=== PATIENT | male | born 1960 | race American Indian/Alaskan Native ===

== ENCOUNTER 2017-01-17 08:28 | Emergency (ER) | payer SELFPAY ==
[2017-01-17 08:55] VITALS: BP 135/88
--- NOTE | 2017-01-17 11:51 | Emergency Department Report ---
HPI - General Chief Complaint: Urogenital-Male Time Seen by Provider: 01/17/17 11:34 - HPI HPI: Is a 56-year-old male presents to ED complaining of burning with urination and penile discharge 2 days. Patient states yesterday he started experiencing some burning burning pain every time he urinates with pain no discharge. She admits to unprotected intercourse last week. Patient denies any pain or swelling in scrotum swelling or pain, blood in the urine, fever, chills, nausea , vomiting, abdominal pain, chest pain or shortness of breath. ED Past Medical Hx - Past Medical History Previous Medical History?: No - Surgical History Hx Appendectomy: Yes - Social History Smoking Status: Never Smoker Substance Use Type: Alcohol - Medications Home Medications: Home Medications Medication Instructions Recorded Confirmed Last Taken Type Phenazopyridine [Pyridium] 100 mg PO TID #6 tab 01/17/17 Unknown Rx Sulfamethoxazole/Trimethoprim 1 each PO BID #14 tablet 01/17/17 Unknown Rx [Bactrim DS TAB] metroNIDAZOLE [Flagyl] 500 mg PO ONCE #4 tab 01/17/17 Unknown Rx ED Review of Systems ROS: Stated complaint: BURNING IN PENAL AREA Other details as noted in HPI Constitutional: denies: chills, fever Eyes: denies: eye pain, eye discharge, vision change ENT: denies: ear pain, throat pain Respiratory: denies: cough, shortness of breath, wheezing Cardiovascular: denies: chest pain, palpitations Endocrine: no symptoms reported Gastrointestinal: denies: abdominal pain, nausea, diarrhea Genitourinary: dysuria, frequency, discharge. denies: urgency, hematuria, testicular pain, testicular mass Musculoskeletal: denies: back pain, joint swelling, arthralgia, myalgia Skin: denies: rash, lesions Neurological: denies: headache, weakness, paresthesias Psychiatric: denies: anxiety, depression Hematological/Lymphatic: denies: easy bleeding, easy bruising Physical Exam - Physical Exam Vital Signs: Vital Signs 01/17/17 08:53 Temperature 98.6 F Pulse Rate 100 H Respiratory 17 Rate Blood Pressure 135/88 O2 Sat by Pulse 99 Oximetry Physical Exam: GENERAL: Alert and oriented x3, no apparent distress, Normal Gait, atraumatic. HEAD: Head is normocephalic and a-traumatic. EYES: Extra ocular muscles are intact. Pupils are equal, round, and reactive to light and accommodation. NECK: Supple. Non edematous, No carotid bruits. No lymphadenopathy or thyromegaly. No C-spine tenderness LUNGS: Symetrical with respiration, No wheezing, no rales or crackles, CTAB. HEART: S1, S2 present, regular rate and rhythm without murmur, no rubs, no gallops. ABDOMEN: No organomegaly was noted,Positive bowel sounds, soft, and non- distended. . Nontender to palpation on all Quadrants, NO CVA tenderness. UROGENITAL: No scrotal mass, Scrotum non tender to palpation bilaterally, no hernia, no scars or penile discharge. SKIN: Warm and dry, No lesions, No ulceration or induration present. ED Course Vital Signs 01/17/17 08:53 Temperature 98.6 F Pulse Rate 100 H Respiratory 17 Rate Blood Pressure 135/88 O2 Sat by Pulse 99 Oximetry ED Medical Decision Making - Medical Decision Making 56-year-old male presents with urethritis ED course: Urinalysis, urine chlamydia ordered. Urinalysis shows bacteria, elevated WBC, elevated RBC, leukocyte esterase, nitrate. Results suggest urethritis possibly due to see transmitted infection Discussed findings with the patient Constipation that STD screening does not come back for the next 3 days. Discussed patient he can call back to get results. Discussed the patient will be treated empirically ED today. Discussed home medication of antibiotics for urinary tract infection. discussed the patient to follow-up with primary care or health department for further STD testing. Vital signs are normal patient is in no acute distress. Patient understands all that was discussed and will follow-up. Critical care attestation.: If time is entered above; I have spent that time in minutes in the direct care of this critically ill patient, excluding procedure time. ED Disposition Clinical Impression: STD exposure, Urethritis UTI (urinary tract infection) Qualifiers: Urinary tract infection type: acute cystitis Hematuria presence: with hematuria Qualified Code(s): N30.01 - Acute cystitis with hematuria Disposition: DISCHARGED TO HOME OR SELFCARE Is pt being admited?: No Does the pt Need Aspirin: No Condition: Stable Instructions: Sexually Transmitted Diseases (ED), Safe Sex (ED), Nonspecific Urethritis in Men (ED), Urinary Tract Infection in Men (ED) Additional Instructions: Take your medication as prescribed. Pyridium one of her medication your prescribed today may make your bodily fluids orange color Follow-up with primary care physician for further STD testing. If worsening symptoms return to ED Prescriptions: metroNIDAZOLE [Flagyl] 500 mg PO ONCE #4 tab Phenazopyridine [Pyridium] 100 mg PO TID #6 tab Sulfamethoxazole/Trimethoprim [Bactrim DS TAB] 1 each PO BID #14 tablet Referrals: PRIMARY CARE, [Primary Care Provider] - 3-5 Days Forms: STI Treatment and Prevention, Work/School Release Form(ED) Time of Disposition: 12:13
[2017-01-17 11:55] LABS: Bacteria,Urine 3+ /HPF (Negative); Bilirubin,Urine NEG (Negative); Blood,Urine MOD (Negative); Ketones,Urine NEG (Negative); Leukocyte Esterase,Urine LG (Negative); Mucus,Urine 1+ /HPF; Nitrite,Urine NEG (Negative); Urobilinogen,Urine < 2.0 mg/dL (<2.0)
[2017-01-17 11:59] LABS: WBC,Urine > 182.0 /HPF (0.0-6.0)
[2017-01-17] MEDS ORDERED: ZITHROMAX PO ONE (12:11)
[2017-01-17] MEDS ORDERED: ROCEPHIN IM ONE (12:11)
[2017-01-17] MEDS ORDERED: XYLOCAINE 1% MPF 5 mL INFILTRATI ONE (12:11)
== END 2017-01-17 12:38 | disposition home or self-care (01) ==
LOC: ED 08:28
DX: N30.01 Acute cystitis with hematuria (principal); N34.2 Other urethritis; Z20.2 Contact with and (suspected) exposure to infections with a predominantly sexual mode of transmission; Z90.49 Acquired absence of other specified parts of digestive tract
CPT/HCPCS: 81001; 87591; 96372; 99282; J0696

== ENCOUNTER 2018-01-31 14:40 | Emergency (ER) | payer OTHER ==
[2018-01-31] MEDS ORDERED: NACL 0.9% 1000 ML 1,000 ML IV ONE ×3 (15:01→16:48)
[2018-01-31 15:28] LABS: Basophils % (Auto) 0.4 % (0.0-1.8); Eosinophils % (Auto) 0.6 % (0.0-4.3); Hematocrit 44.1 % (35.5-45.6); Lymphocytes # (Auto) 0.9 K/mm3 (1.2-5.4); Lymphocytes % (Auto) 19.4 % (13.4-35.0); Mean Corpuscular HGB Conc 34 % (32-34); Mean Corpuscular Hemoglobin 33 pg (28-32); Mean Corpuscular Volume 96 fl (84-94); Monocytes # (Auto) 0.6 K/mm3 (0.0-0.8); Monocytes % (Auto) 12.7 % (0.0-7.3); Platelet Count 139 K/mm3 (140-440); Red Cell Distribution Width 13.4 % (13.2-15.2)
[2018-01-31 15:38] LABS: INR 0.97 (0.87-1.13)
[2018-01-31 15:39] LABS: Partial Thromboplastin Time 29.6 Sec. (24.2-36.6)
[2018-01-31 15:44] LABS: Alanine Aminotransferase 22 units/L (7-56); Albumin 4.3 g/dL (3.9-5); BUN/Creatinine Ratio 17; Blood Urea Nitrogen 10 mg/dL (9-20); Calcium 9.4 mg/dL (8.4-10.2); Hemolysis Index 7
[2018-01-31 15:53] LABS: Lipase 448 units/L (13-60)
[2018-01-31] MEDS ORDERED: ZOFRAN IV ONE (16:37)
[2018-01-31] MEDS ORDERED: MORPHINE IV ONE (16:37)
--- NOTE | 2018-01-31 16:43 | Emergency Department Report ---
ED Abdominal Pain HPI - General Chief Complaint: GI Bleed Stated Complaint: SEVERE ABD PAIN Time Seen by Provider: 01/31/18 15:59 Source: patient Mode of arrival: Ambulatory Limitations: No Limitations - History of Present Illness Initial Comments: Mr. Bell is a 57-year-old male with hx of daily alcohol use. He has had 2 days of epigastric pain with vomiting. He said the vomit was streaked with blood. Denies any bloody stools. Did have a history of pancreatitis. He drinks 60+ ounces of beer daily. MD Complaint: abdominal pain -: Gradual, days(s) (3) Location: epigastric Radiation: none Severity: severe Severity scale (0 -10): 10 Quality: cramping Consistency: constant Associated Symptoms: hematochezia - Related Data Previous Rx's Medication Instructions Recorded Last Taken Type Phenazopyridine [Pyridium] 100 mg PO TID #6 tab 01/17/17 Unknown Rx Sulfamethoxazole/Trimethoprim 1 each PO BID #14 tablet 01/17/17 Unknown Rx [Bactrim DS TAB] metroNIDAZOLE [Flagyl] 500 mg PO ONCE #4 tab 01/17/17 Unknown Rx Allergies Allergy/AdvReac Type Severity Reaction Status Date / Time No Known Allergies Allergy Verified 01/17/17 08:56 ED Review of Systems ROS: Stated complaint: SEVERE ABD PAIN Other details as noted in HPI Comment: All other systems reviewed and negative Constitutional: malaise. denies: fever Respiratory: denies: cough Cardiovascular: denies: chest pain ED Past Medical Hx - Past Medical History Previous Medical History?: Yes Hx Hypertension: Yes Hx Psychiatric Treatment: Yes (PTSD) Additional medical history: ETOH ABUSE WITH BEER - Surgical History Past Surgical History?: Yes Hx Appendectomy: Yes - Social History Smoking Status: Never Smoker Substance Use Type: Alcohol - Medications Home Medications: Home Medications Medication Instructions Recorded Confirmed Last Taken Type Phenazopyridine [Pyridium] 100 mg PO TID #6 tab 01/17/17 Unknown Rx Sulfamethoxazole/Trimethoprim 1 each PO BID #14 tablet 01/17/17 Unknown Rx [Bactrim DS TAB] metroNIDAZOLE [Flagyl] 500 mg PO ONCE #4 tab 01/17/17 Unknown Rx ED Physical Exam - General Limitations: No Limitations General appearance: alert, in no apparent distress - Head Head exam: Present: atraumatic, normocephalic - Eye Eye exam: Present: normal appearance - ENT ENT exam: Present: mucous membranes moist - Neck Neck exam: Present: normal inspection - Respiratory Respiratory exam: Present: normal lung sounds bilaterally. Absent: respiratory distress, wheezes, rales, rhonchi - Cardiovascular Cardiovascular Exam: Present: regular rate, normal rhythm, normal heart sounds. Absent: systolic murmur, diastolic murmur, rubs, gallop - GI/Abdominal GI/Abdominal exam: Present: soft, distended, normal bowel sounds. Absent: tenderness, guarding, rebound - Rectal Rectal exam: Present: deferred - Extremities Exam Extremities exam: Present: normal inspection - Back Exam Back exam: Present: normal inspection - Neurological Exam Neurological exam: Present: alert, oriented X3 - Psychiatric Psychiatric exam: Present: normal affect, normal mood - Skin Skin exam: Present: warm, dry, intact, normal color. Absent: rash ED Course Vital Signs 01/31/18 01/31/18 14:58 16:22 Temperature 97.8 F 98.5 F Pulse Rate 112 H 87 Respiratory 22 15 Rate Blood Pressure 157/108 Blood Pressure 156/102 [Left] O2 Sat by Pulse 99 100 Oximetry ED Medical Decision Making - Lab Data Result diagrams: 01/31/18 15:08 01/31/18 15:08 Laboratory Results - last 24 hr 01/31/18 01/31/18 01/31/18 15:08 15:08 15:08 WBC 4.7 RBC 4.60 Hgb 15.0 Hct 44.1 MCV 96 H MCH 33 H MCHC 34 RDW 13.4 Plt Count 139 L Lymph % (Auto) 19.4 [place] % (Auto) 12.7 H Eos % (Auto) 0.6 Baso % (Auto) 0.4 Lymph # 0.9 L Moore # 0.6 Eos # 0.0 Baso # 0.0 Seg Neutrophils % 66.9 Seg Neutrophils # 3.2 PT 13.4 INR 0.97 APTT 29.6 Sodium 135 L Potassium 4.5 Chloride 93.4 L Carbon Dioxide 25 Anion Gap 21 BUN 10 Creatinine 0.6 L Estimated GFR > 60 BUN/Creatinine Ratio 17 Glucose 112 H Calcium 9.4 Total Bilirubin 1.10 AST 39 ALT 22 Alkaline Phosphatase 77 Total Protein 8.6 H Albumin 4.3 Albumin/Globulin Ratio 1.0 Lipase 448 H Blood Type 01/31/18 15:08 WBC RBC Hgb Hct MCV MCH MCHC RDW Plt Count Lymph % (Auto) [place] % (Auto) Eos % (Auto) Baso % (Auto) Lymph # Moore # Eos # Baso # Seg Neutrophils % Seg Neutrophils # PT INR APTT Sodium Potassium Chloride Carbon Dioxide Anion Gap BUN Creatinine Estimated GFR BUN/Creatinine Ratio Glucose Calcium Total Bilirubin AST ALT Alkaline Phosphatase Total Protein Albumin Albumin/Globulin Ratio Lipase Blood Type A POSITIVE Vital Signs - 24 hr 01/31/18 01/31/18 14:58 16:22 Temperature 97.8 F 98.5 F Pulse Rate 112 H 87 Respiratory 22 15 Rate Blood Pressure 157/108 Blood Pressure 156/102 [Left] O2 Sat by Pulse 99 100 Oximetry - Medical Decision Making Mr. Bell presents with epigastric pain and hematochezia with elevated lipase to indicate acute pancreatitis. No indication of active GI bleeding with normal H/H and normal vital signs. I have asked our hospitalist Dr. John to evaluate patient for admission. Critical care attestation.: If time is entered above; I have spent that time in minutes in the direct care of this critically ill patient, excluding procedure time. ED Disposition Clinical Impression: Acute alcoholic pancreatitis, Acute abdominal pain Disposition: OP ADMIT IP TO THIS HOSP Is pt being admited?: Yes Does the pt Need Aspirin: No Condition: Stable Time of Disposition: 16:43
--- NOTE | 2018-01-31 17:12 | History and Physical Report ---
History of Present Illness Chief complaint: My stomach has been hurting History of present illness: 57 YO Male with HTN, OA, ETOH Dependence presents to ED for evaluation. Pt states that he has experienced abdominal pain over the past 3 days. Pt states that symptoms began 3 days ago while drinking his daily beer. Pt seen and evaluated in ED and found to have ETOH Pancreatitis. Pt treated with IVF resuscitation, pain control, and anti emetic therapy and supportive care. Pt counseled regarding ETOH cessation. Past History Past Medical History: hypertension Past Surgical History: appendectomy Social history: alcohol abuse Family history: hypertension Medications and Allergies Allergies Allergy/AdvReac Type Severity Reaction Status Date / Time No Known Allergies Allergy Verified 01/17/17 08:56 Home Medications Medication Instructions Recorded Confirmed Last Taken Type Phenazopyridine [Pyridium] 100 mg PO TID #6 tab 01/17/17 Unknown Rx Sulfamethoxazole/Trimethoprim 1 each PO BID #14 tablet 01/17/17 Unknown Rx [Bactrim DS TAB] metroNIDAZOLE [Flagyl] 500 mg PO ONCE #4 tab 01/17/17 Unknown Rx Active Meds: Active Medications Sodium Chloride (Nacl 0.9% 1000 Ml) 1,000 mls @ 250 mls/hr IV ONCE ONE Stop: 01/31/18 19:00 Sodium Chloride (Nacl 0.9% 1000 Ml) 1,000 mls @ 999 mls/hr IV BOLUS ONE Stop: 01/31/18 17:37 Folic Acid 1 mg/ Multivitamins /Minerals 10 ml/ Thiamine HCl 100 mg/ Sodium Chloride 1,000 mls @ 500 mls/hr IV .BY DURATION [facility] Sodium Chloride (Nacl 0.9% 1000 Ml) 1,000 mls @ 125 mls/hr IV .BY DURATION [facility] Review of Systems Constitutional: no weight loss, no weight gain, no fever, no chills Ears, nose, mouth and throat: no ear pain, no ear discharge, no tinnitis, no decreased hearing, no nose pain, no nasal congestion, no nasal discharge Cardiovascular: no chest pain, no orthopnea, no palpitations, no rapid/ irregular heart beat, no edema, no syncope, no lightheadedness Respiratory: no cough with sputum, no excessive sputum, no hemoptysis, no shortness of breath Gastrointestinal: abdominal pain, nausea, no BRBPR, no melena, no hematochezia, no early satiety Genitourinary Male: no hematuria, no flank pain, no urinary frequency, no urinary hesitancy Rectal: no pain, no incontinence, no bleeding Musculoskeletal: no neck stiffness, no neck pain, no shooting arm pain, no arm numbness/tingling, no low back pain, no shooting leg pain Integumentary: no rash, no pruritis, no redness, no sores, no wounds, no jaundice Neurological: no transient paralysis, no paralysis, no weakness, no parathesias , no numbness, no tingling Psychiatric: no memory loss, no change in sleep habits, no sleep disturbances, no insomnia, no hypersomnia, no change in appetite, no change in libido, no suicidal ideation Endocrine: no cold intolerance, no heat intolerance, no polyphagia, no excessive thirst, no polydipsia, no polyuria, no nocturia Hematologic/Lymphatic: no easy bruising, no easy bleeding, no lymphadenopathy, no lymphedema Allergic/Immunologic: no urticaria, no allergic rhinitis, no wheezing, no persistent infections, no anaphylaxis Exam - Constitutional Vitals: Temp Pulse Resp BP Pulse Ox 98.5 F 87 15 156/102 100 01/31/18 16:22 01/31/18 16:22 01/31/18 16:22 01/31/18 16:22 01/31/18 16:22 General appearance: Present: no acute distress, well-nourished - EENT Eyes: Present: PERRL ENT: hearing intact, clear oral mucosa - Neck Neck: Present: supple, normal ROM - Respiratory Respiratory effort: normal Respiratory: bilateral: CTA - Cardiovascular Heart Sounds: Present: S1 & S2. Absent: rub, click - Extremities Extremities: pulses symmetrical, No edema Peripheral Pulses: within normal limits - Abdominal General gastrointestinal: Present: soft, non-tender, non-distended, normal bowel sounds Male genitourinary: Present: normal - Integumentary Integumentary: Present: clear, warm, dry - Musculoskeletal Musculoskeletal: gait normal, strength equal bilaterally - Psychiatric Psychiatric: appropriate mood/affect, intact judgment & insight - Neurologic Neurologic: CNII-XII intact, moves all extremities Results - Labs CBC & Chem 7: 01/31/18 15:08 01/31/18 15:08 Labs: Abnormal lab results 01/31/18 01/31/18 Range/Units 15:08 15:08 MCV 96 H (84-94) fl MCH 33 H (28-32) pg Plt Count 139 L (140-440) K/mm3 [place] % (Auto) 12.7 H (0.0-7.3) % Lymph # 0.9 L (1.2-5.4) K/mm3 Sodium 135 L (137-145) mmol/L Chloride 93.4 L (98-107) mmol/L Creatinine 0.6 L (0.8-1.5) mg/dL Glucose 112 H (75-100) mg/dL Total Protein 8.6 H (6.3-8.2) g/dL Lipase 448 H (13-60) units/L Assessment and Plan - Patient Problems (1) EtOH dependence Current Visit: Yes Status: Acute Qualifiers: Complication of substance-induced condition: uncomplicated Plan to address problem: Thiamine, folic acid, multivitamin, supportive care, ETOH cessation (2) Pancreatitis Current Visit: Yes Status: Acute Qualifiers: Pancreatitis type: alcohol induced Plan to address problem: IVF resuscitation, monitor uop q shift, banana bag, antiemetic therapy
[2018-01-31] MEDS: 1: FOLVITE 1 MG, INFUVITE 10 ML, VITAMIN B-1 100 MG in NACL 0.9% 1000 ML 988.8 ML 2: NA IV SCH ×2 (17:53→21:24)
[2018-01-31 20:07] LABS: Amphetamine Screen,Urine PRESUMPTIVE NEGATIVE; Benzodiazepines Screen,Urine PRESUMPTIVE NEGATIVE; Cannabinoid Screen,Urine PRESUMPTIVE NEGATIVE; Cocaine Screen,Urine PRESUMPTIVE NEGATIVE; Methadone Screen,Urine PRESUMPTIVE NEGATIVE
[2018-01-31 20:20] LABS: Opiate Screen,Urine PRESUMPTIVE POSITIVE
[2018-01-31 23:33] VITALS: BP 157/105
== END 2018-01-31 23:31 | disposition home or self-care (01) ==
LOC: ED 14:40
DX: K85.20 Alcohol induced acute pancreatitis without necrosis or infection (principal); I10 Essential (primary) hypertension
CPT/HCPCS: 36415; 80053; 80307; 83690; 85025; 85610; 85730; 86850; 86900; 86901; 93005; 93010; 96365; 96366; 96375; 99284; G0480; J2270; J2405; J7030; 80320; J3411

== ENCOUNTER 2018-02-22 19:07 | Emergency (ER) | payer SELFPAY ==
[2018-02-22 19:55] LABS: Hematocrit 40.7 % (35.5-45.6); Hemoglobin 13.9 gm/dl (11.8-15.2); Mean Corpuscular HGB Conc 34 % (32-34); Mean Corpuscular Hemoglobin 33 pg (28-32); Mean Corpuscular Volume 97 fl (84-94); Platelet Count 176 K/mm3 (140-440); Red Blood Count 4.21 M/mm3 (3.65-5.03); Red Cell Distribution Width 13.5 % (13.2-15.2)
[2018-02-22 20:09] LABS: Alanine Aminotransferase 12 units/L (7-56); Albumin 4.6 g/dL (3.9-5); BUN/Creatinine Ratio 13; Blood Urea Nitrogen 9 mg/dL (9-20); Calcium 8.8 mg/dL (8.4-10.2); Hemolysis Index 6
[2018-02-22] MEDS ORDERED: VITAMIN B-1 100 MG, FOLVITE 1 MG, INFUVITE 10 ML in NACL 0.9% 1000 ML 1,000 ML IV ONE (20:48)
--- NOTE | 2018-02-22 20:51 | Emergency Department Report ---
HPI - General Chief Complaint: Abdominal Pain Time Seen by Provider: 02/22/18 20:37 - HPI HPI: 57-year-old male presents to the emergency department with a complaint of a 2 day history of generalized abdominal pain that is worse in the upper quadrant of the abdomen. The patient was here on 01/31/18 and diagnosed with alcoholic pancreatitis and records show that he was going to be admitted but ended up either being discharged or leaving AGAINST MEDICAL ADVICE at that time. Patient says that he was offered some detox/rehabilitation but did not want it done at that time but is now asking if he can get set up to go directly to a detox facility. He admits that after his previous visit here he did not stop drinking alcohol and drinks daily beer. He denies any other past medical history. He has not taken anything for his symptoms prior to presentation. He denies any current nausea, vomiting, fever. ED Past Medical Hx - Past Medical History Hx Hypertension: Yes Hx Arthritis: Yes Hx Psychiatric Treatment: Yes (PTSD) Additional medical history: ETOH ABUSE WITH BEER, pancreatitis - Surgical History Past Surgical History?: Yes Hx Appendectomy: Yes - Social History Smoking Status: Never Smoker Substance Use Type: Alcohol - Medications Home Medications: Home Medications Medication Instructions Recorded Confirmed Last Taken Type Phenazopyridine [Pyridium] 100 mg PO TID #6 tab 01/17/17 Unknown Rx Sulfamethoxazole/Trimethoprim 1 each PO BID #14 tablet 01/17/17 Unknown Rx [Bactrim DS TAB] metroNIDAZOLE [Flagyl] 500 mg PO ONCE #4 tab 01/17/17 Unknown Rx Folic Acid [Folvite] 1 mg PO QDAY #30 tablet 01/31/18 Unknown Rx Multivitamin Tab [Multiple Vitamin 1 each PO QDAY #30 tablet 01/31/18 Unknown Rx TAB (Theragran)] Ondansetron [Zofran Odt] 4 mg PO Q8HR #15 tab.rapdis 01/31/18 Unknown Rx Thiamine [Vitamin B-1] 100 mg PO QDAY #30 tablet 01/31/18 Unknown Rx oxyCODONE /ACETAMINOPHEN [Percocet 1 tab PO Q6HR PRN #15 tablet 01/31/18 Unknown Rx 5/325] ED Review of Systems ROS: Stated complaint: ABDOMINAL PAIN/ALCOHOLISM Other details as noted in HPI Comment: All other systems reviewed and negative Constitutional: denies: chills, fever Eyes: denies: eye pain, eye discharge, vision change ENT: denies: ear pain, throat pain Respiratory: denies: cough, shortness of breath, wheezing Cardiovascular: denies: chest pain, palpitations Gastrointestinal: abdominal pain. denies: vomiting Genitourinary: denies: urgency, dysuria Musculoskeletal: denies: back pain, joint swelling, arthralgia Skin: denies: rash, lesions Neurological: denies: headache, weakness, paresthesias Physical Exam - Physical Exam Vital Signs: Vital Signs 02/22/18 19:15 Temperature 97.7 F Pulse Rate 121 H Respiratory 20 Rate Blood Pressure 142/93 O2 Sat by Pulse 95 Oximetry Physical Exam: GENERAL: The patient is well-developed well-nourished. HENT: Normocephalic. Atraumatic. Patient has moist mucous membranes. EYES: Extraocular motions are intact. Pupils equal reactive to light bilaterally. NECK: Supple. Trachea is midline. CHEST/LUNGS: Clear to auscultation. There is no respiratory distress noted. HEART/CARDIOVASCULAR: Regular. There is no tachycardia. There is no murmur. ABDOMEN: Abdomen is soft. Generalized tenderness to palpation of the abdomen. No guarding. Patient has normal bowel sounds. There is no abdominal distention. SKIN: There is no rash. There is no edema. There is no diaphoresis. NEURO: The patient is awake, alert, and oriented. The patient is cooperative. The patient has no focal neurologic deficits. The patient has normal speech. MUSCULOSKELETAL: There is no tenderness or deformity. There is no limitation range of motion. There is no evidence of acute injury. ED Course Vital Signs 02/22/18 19:15 Temperature 97.7 F Pulse Rate 121 H Respiratory 20 Rate Blood Pressure 142/93 O2 Sat by Pulse 95 Oximetry ED Medical Decision Making - Lab Data Result diagrams: 02/22/18 19:32 02/22/18 19:32 - Radiology Data Radiology results: report reviewed EXAM: US ABDOMEN LIMITED HISTORY: upper abd pain TECHNIQUE: Routine imaging was obtained of the right upper outer quadrant. The CT scan of 02/22/2018 was reviewed for correlation. FINDINGS: The liver is normal in size. There are 2 hyperechoic solid lesions in the right lobe 1 posterior and in the midline measuring up to 2.2 cm in diameter 1 more anterior and near the gallbladder measures 1.4 cm in diameter. These are compatible with benign hemangiomas. Adjacent the gallbladder is a benign-appearing 8 mm cyst. The gallbladder is normal in size and wall thickness. Stones are not seen. The common bile duct is normal caliber 3.7 mm. The pancreas is not well seen because of bowel gas. The right kidney is normal size contour and echotexture and shows no evidence of hydronephrosis. The right kidney measures 9.8 cm x 4.7 cm x 5.5 cm. Free fluid is not seen IMPRESSION: Two benign-appearing hemangiomas in the right hepatic lobe. 8 mm benign cyst adjacent to the gallbladder wall. Normal-appearing gallbladder and biliary tree. Transcribed By: RB Dictated By: ZULEMA CASTILLO MD Electronically Authenticated By: ZULEMA CASTILLO MD Signed Date/Time: 02/23/1849 PROCEDURE: CT ABDOMEN PELVIS W CON TECHNIQUE: Computerized axial tomography of the abdomen and pelvis was performed after the IV injection of iodinated nonionic contrast. HISTORY: Abd pain COMPARISON: No prior studies are available for comparison. FINDINGS: Multiple small bullae are noted in the visualized bilateral lung bases. Spleen, pancreas and adrenal glands are within normal limits. 6 millimeter cystic lesion is noted in the midpole left kidney most likely representing a simple cyst.. Bilateral kidneys otherwise demonstrate normal enhancement without hydronephrosis. Urinary bladder is partially filled with normal outlines. Aorta is of normal caliber. There is no free fluid or free air. A 6 millimeter cystic lesion is noted in the right lobe liver adjacent to the gallbladder. An irregular hypodense lesion is noted in the right lobe liver measuring 1.5 x 1.7 centimeters with peripheral pooling of contrast. Small bowel loops are within normal limits. Appendix is not distinctly visualized. There are no inflammatory changes in the right lower quadrant. Moderate prostatomegaly is noted. Moderate degree degenerative changes are noted involving the lower lumbar spine. Vertebral height is normal. IMPRESSION: An irregular hypodense lesion of right lobe liver with centripetal enhancement most likely represents a hemangioma. A dynamic post-contrast CT may be recommended for further evaluation. A small cystic lesion adjacent to the gallbladder may represent a liver cyst. Differential diagnosis includes a small pericholecystic fluid collection. Ultrasound evaluation is recommended. Moderate prostatomegaly No acute intra-abdominal or pelvic pathology. Transcribed By: [facility] [place] Dictated By: DIPTI DE SOUZA Electronically Authenticated By: NOLVIA DIPTI [place] Signed Date/Time: 02/22/18 4210 - Medical Decision Making Patient presents with some abdominal pain with a history of recent alcoholic pancreatitis and the fact that he has not stopped drinking. He is tender to palpation of the generalized abdomen but there is no guarding and the abdomen does not appear rigid or toxic. Labs are mostly unremarkable except for the elevated blood alcohol level of 0.34 from 7 PM this evening. His lipase today is only 40. A CT scan was done of the abdomen and pelvis that did not show any signs of pancreatitis. There are some lesions of the liver appear consistent with hemangiomas and there was something around the gallbladder cyst versus pericholecystic fluid and an ultrasound was recommended. Ultrasound confirms the hemangiomas and a gallbladder cyst but no problems with the biliary tree. The patient is asking for rehabilitation/detox for his alcohol problem. The patient will continue to get IV fluid resuscitation and will remain in the emergency department until 8 AM. Not only will he be around the level where he is legally sober, but this is also the time when he can get a detox referral from [facility]. If he does not meet criteria for this detox, he can be seen by the psych residential installer for some other outpatient referrals. Critical Care Time: No Critical care attestation.: If time is entered above; I have spent that time in minutes in the direct care of this critically ill patient, excluding procedure time. ED Disposition Clinical Impression: Alcohol abuse EtOH dependence Qualifiers: Substance use status: uncomplicated Qualified Code(s): F10.20 - Alcohol dependence, uncomplicated Abdominal pain Qualifiers: Abdominal location: generalized Qualified Code(s): R10.84 - Generalized abdominal pain Disposition: DC-01 TO HOME OR SELFCARE Is pt being admited?: No Condition: Stable Instructions: Abuse of Alcohol (ED), Medical Clearance for Substance Abuse Treatment (ED) Referrals: [facility] [Outside] - 3-5 Days PRIMARY CARE, [Primary Care Provider] - 3-5 Days Time of Disposition: 01:52
[2018-02-22 20:52] LABS: Bilirubin,Urine NEG (Negative); Blood,Urine SM (Negative); Color,Urine Yellow (Yellow); Protein,Urine <15 mg/dL mg/dL (Negative); Urobilinogen,Urine < 2.0 mg/dL (<2.0)
[2018-02-22 21:04] LABS: Amphetamine Screen,Urine PRESUMPTIVE NEGATIVE; Benzodiazepines Screen,Urine PRESUMPTIVE NEGATIVE; Cannabinoid Screen,Urine PRESUMPTIVE NEGATIVE; Cocaine Screen,Urine PRESUMPTIVE NEGATIVE; Methadone Screen,Urine PRESUMPTIVE NEGATIVE; Opiate Screen,Urine PRESUMPTIVE NEGATIVE
[2018-02-22 21:12] LABS: Basophils % (Manual) 0 % (0.0-1.8); Total Cells Counted 100
[2018-02-22 21:13] LABS: RBC Morphology Normal
--- NOTE | 2018-02-22 23:02 | Cat Scan Report ---
FINAL REPORT PROCEDURE: CT ABDOMEN PELVIS W CON TECHNIQUE: Computerized axial tomography of the abdomen and pelvis was performed after the IV injection of iodinated nonionic contrast. HISTORY: Abd pain COMPARISON: No prior studies are available for comparison. FINDINGS: Multiple small bullae are noted in the visualized bilateral lung bases. Spleen, pancreas and adrenal glands are within normal limits. 6 millimeter cystic lesion is noted in the midpole left kidney most likely representing a simple cyst.. Bilateral kidneys otherwise demonstrate normal enhancement without hydronephrosis. Urinary bladder is partially filled with normal outlines. Aorta is of normal caliber. There is no free fluid or free air. A 6 millimeter cystic lesion is noted in the right lobe liver adjacent to the gallbladder. An irregular hypodense lesion is noted in the right lobe liver measuring 1.5 x 1.7 centimeters with peripheral pooling of contrast. Small bowel loops are within normal limits. Appendix is not distinctly visualized. There are no inflammatory changes in the right lower quadrant. Moderate prostatomegaly is noted. Moderate degree degenerative changes are noted involving the lower lumbar spine. Vertebral height is normal. IMPRESSION: An irregular hypodense lesion of right lobe liver with centripetal enhancement most likely represents a hemangioma. A dynamic post-contrast CT may be recommended for further evaluation. A small cystic lesion adjacent to the gallbladder may represent a liver cyst. Differential diagnosis includes a small pericholecystic fluid collection. Ultrasound evaluation is recommended. Moderate prostatomegaly No acute intra-abdominal or pelvic pathology.
[2018-02-23] MEDS ORDERED: NACL 0.9% 1000 ML 1,000 ML IV ONE (00:35)
[2018-02-23] MEDS ORDERED: TORADOL IV ONE (00:56)
--- NOTE | 2018-02-23 01:40 | Ultrasound Report ---
FINAL REPORT EXAM: US ABDOMEN LIMITED HISTORY: upper abd pain TECHNIQUE: Routine imaging was obtained of the right upper outer quadrant. The CT scan of 02/22/2018 was reviewed for correlation. FINDINGS: The liver is normal in size. There are 2 hyperechoic solid lesions in the right lobe 1 posterior and in the midline measuring up to 2.2 cm in diameter 1 more anterior and near the gallbladder measures 1.4 cm in diameter. These are compatible with benign hemangiomas. Adjacent the gallbladder is a benign-appearing 8 mm cyst. The gallbladder is normal in size and wall thickness. Stones are not seen. The common bile duct is normal caliber 3.7 mm. The pancreas is not well seen because of bowel gas. The right kidney is normal size contour and echotexture and shows no evidence of hydronephrosis. The right kidney measures 9.8 cm x 4.7 cm x 5.5 cm. Free fluid is not seen IMPRESSION: Two benign-appearing hemangiomas in the right hepatic lobe. 8 mm benign cyst adjacent to the gallbladder wall. Normal-appearing gallbladder and biliary tree.
--- NOTE | 2018-02-23 16:49 | Consultation ---
History of Present Illness - Reason for Consult Reason for consult: etoh abuse - History of Present Psychiatric Illness CHIEF COMPLAINT IN PATIENTS WORDS: HISTORY OF PRESENT ILLNESS: This is a 57-year-old male with a past psychiatric history of anxiety disorder as well as alcohol abuse who presents secondary to abdominal pain. Patient reports a history of pancreatitis and per review of the medical record patient has refused to engage in appropriate medical attention as well as detox in the recent past during the past hospitalization. Currently patient was reportedly intoxicated on initial assessment and is being referred for outpatient substance abuse services. Currently the patient denies suicidal homicidal thoughts. PSYCHIATRIC REVIEW OF SYSTEMS: Substance: UDS -, BAL 0.34 on admission Detoxification/Withdrawal: none noted Depression: denies Charity: no labile moods, not hyperverbal, no flight of ideas Psychosis: no AVH, no thought disorder noted, no paranoia/grandiosity/erotomania Anxiety/ OCD/ PTSD: denies somatic symptoms, flashbacks, nightmares, avoidance, panic attacks Suicidality: denies SI Other Self-Injurious Behavior: none currently, no SIB noted recently Violent/ Aggressive Behavior: none noted CURRENT MEDICATIONS: per medication reconciliation ALLERGIES: NKDA PAST PSYCHIATRIC HISTORY: Prior Suicide Attempts: denies Prior Self-Injurious Behaviors: denies PAST PSYCHIATRIC MEDICATION TRIALS: patient did not recall MEDICAL HISTORY: Denies MENTAL STATUS EXAM: General Appearance: Dressed in hospital gown, no acute distress Sensorium/Consciousness: alert and responding to external stimuli Eye Contact: limited Attitude / Behavior: cooperative, but guarded Psychomotor & Musculoskeletal Activity: WNL Mood: fine Affect: constricted Speech / Language: normal Thought Processes: organized, logical, linear, goal directed Thought Content: no SI, no HI Perception: no AVH Orientation: person, place, time, situation Judgment What would you do if you smelled smoke in a crowded movie theater?: poor/impulsive Insight: poor Intelligence Vocabulary, general fund of knowledge, educational level: Average Capacity of ADLs: Independent STRENGTHS: PSYCHOSOCIAL AND ENVIRONMENTAL STRESSORS: ASSESSMENT: EtOH Abuse Anxiety Disorder, likely PTSD PLAN OF CARE: - Refer for substance abuse services as an outpatient Medications and Allergies Allergies Allergy/AdvReac Type Severity Reaction Status Date / Time No Known Allergies Allergy Verified 01/17/17 08:56 Home Medications Medication Instructions Recorded Confirmed Last Taken Type Phenazopyridine [Pyridium] 100 mg PO TID #6 tab 01/17/17 Unknown Rx Sulfamethoxazole/Trimethoprim 1 each PO BID #14 tablet 01/17/17 Unknown Rx [Bactrim DS TAB] metroNIDAZOLE [Flagyl] 500 mg PO ONCE #4 tab 01/17/17 Unknown Rx Folic Acid [Folvite] 1 mg PO QDAY #30 tablet 01/31/18 Unknown Rx Multivitamin Tab [Multiple Vitamin 1 each PO QDAY #30 tablet 01/31/18 Unknown Rx TAB (Theragran)] Ondansetron [Zofran Odt] 4 mg PO Q8HR #15 tab.rapdis 01/31/18 Unknown Rx Thiamine [Vitamin B-1] 100 mg PO QDAY #30 tablet 01/31/18 Unknown Rx oxyCODONE /ACETAMINOPHEN [Percocet 1 tab PO Q6HR PRN #15 tablet 01/31/18 Unknown Rx 5/325] Mental Status Exam - Vital signs Last Vital Signs Temp 97.7 F 02/22/18 19:15 Pulse 121 H 02/22/18 19:15 Resp 20 02/22/18 19:15 BP 142/93 02/22/18 19:15 Pulse Ox 95 02/22/18 19:15 Results Result Diagrams: 02/22/18 19:32 02/22/18 19:32 Abnormal lab results 02/22/18 02/22/18 02/22/18 Range/Units 19:32 19:32 19:37 WBC 4.1 L (4.5-11.0) K/mm3 MCV 97 H (84-94) fl MCH 33 H (28-32) pg Seg Neuts % (Manual) 33.0 L (40.0-70.0) % Lymphocytes % (Manual) 51.0 H (13.4-35.0) % Monocytes % (Manual) 15.0 H (0.0-7.3) % Seg Neutrophils # Man 1.4 L (1.8-7.7) K/mm3 Creatinine 0.7 L (0.8-1.5) mg/dL Total Protein 8.4 H (6.3-8.2) g/dL Salicylates < 0.3 L (2.8-20.0) mg/dL Acetaminophen (10.0-30.0) ug/mL Plasma/Serum Alcohol (0-0.07) % 02/22/18 02/22/18 02/23/18 Range/Units 19:37 19:37 00:51 WBC (4.5-11.0) K/mm3 MCV (84-94) fl MCH (28-32) pg Seg Neuts % (Manual) (40.0-70.0) % Lymphocytes % (Manual) (13.4-35.0) % Monocytes % (Manual) (0.0-7.3) % Seg Neutrophils # Man (1.8-7.7) K/mm3 Creatinine (0.8-1.5) mg/dL Total Protein (6.3-8.2) g/dL Salicylates (2.8-20.0) mg/dL Acetaminophen < 5.0 L (10.0-30.0) ug/mL Plasma/Serum Alcohol 0.34 H 0.24 H (0-0.07) % All other labs normal.
[2018-02-23 18:47] VITALS: BP 136/88
== END 2018-02-23 19:21 | disposition home or self-care (01) ==
LOC: ED 19:07
DX: F10.20 Alcohol dependence, uncomplicated (principal); R10.84 Generalized abdominal pain; I10 Essential (primary) hypertension; M19.90 Unspecified osteoarthritis, unspecified site; Z90.49 Acquired absence of other specified parts of digestive tract
CPT/HCPCS: 36415; 74177; 76705; 80053; 80307; 81001; 83690; 85007; 85025; 96365; 96366; 96375; 99284; G0480; J1885; J3411; J7030; Q9967; 80320

== ENCOUNTER 2018-03-06 16:41 | Emergency (ER) | payer SELFPAY ==
[2018-03-06 17:25] LABS: Alanine Aminotransferase 11 units/L (7-56); Albumin 4.2 g/dL (3.9-5); BUN/Creatinine Ratio 17; Basophils % (Auto) 0.7 % (0.0-1.8); Blood Urea Nitrogen 12 mg/dL (9-20); Calcium 9.6 mg/dL (8.4-10.2); Eosinophils # (Auto) 0.1 K/mm3 (0.0-0.4); Eosinophils % (Auto) 2.3 % (0.0-4.3); Hematocrit 44.1 % (35.5-45.6); Hemoglobin 14.7 gm/dl (11.8-15.2); Hemolysis Index 5; Lipase 144 units/L (13-60); Lymphocytes # (Auto) 1.5 K/mm3 (1.2-5.4); Lymphocytes % (Auto) 29.9 % (13.4-35.0); Mean Corpuscular HGB Conc 33 % (32-34); Mean Corpuscular Hemoglobin 32 pg (28-32); Mean Corpuscular Volume 97 fl (84-94); Monocytes # (Auto) 0.8 K/mm3 (0.0-0.8); Monocytes % (Auto) 15.2 % (0.0-7.3); Platelet Count 175 K/mm3 (140-440); Red Blood Count 4.56 M/mm3 (3.65-5.03); Red Cell Distribution Width 12.8 % (13.2-15.2)
[2018-03-07] MEDS ORDERED: TORADOL IV ONE (00:21)
--- NOTE | 2018-03-07 00:24 | Emergency Department Report ---
ED Abdominal Pain HPI - General Chief Complaint: Abdominal Pain Stated Complaint: ABDOMINAL PAIN Time Seen by Provider: 03/06/18 23:14 Source: patient, EMS Mode of arrival: Ambulatory Limitations: No Limitations - History of Present Illness MD Complaint: abdominal pain -: Gradual Location: periumbilical Radiation: none Migration to: no migration Severity: mild Severity scale (0 -10): 2 Quality: aching Consistency: intermittent Improves With: nothing Worsens With: eating, other (EtOH) Context: other (hx of similar pain feels like past pancreatitis. Reports that he ran out of his percocet rx and is requesting a refill for symptom control) Associated Symptoms: denies other symptoms - Related Data Previous Rx's Medication Instructions Recorded Last Taken Type Phenazopyridine [Pyridium] 100 mg PO TID #6 tab 01/17/17 Unknown Rx Sulfamethoxazole/Trimethoprim 1 each PO BID #14 tablet 01/17/17 Unknown Rx [Bactrim DS TAB] metroNIDAZOLE [Flagyl] 500 mg PO ONCE #4 tab 01/17/17 Unknown Rx Folic Acid [Folvite] 1 mg PO QDAY #30 tablet 01/31/18 Unknown Rx Multivitamin Tab [Multiple Vitamin 1 each PO QDAY #30 tablet 01/31/18 Unknown Rx TAB (Theragran)] Ondansetron [Zofran Odt] 4 mg PO Q8HR #15 tab.rapdis 01/31/18 Unknown Rx Thiamine [Vitamin B-1] 100 mg PO QDAY #30 tablet 01/31/18 Unknown Rx oxyCODONE /ACETAMINOPHEN [Percocet 1 tab PO Q6HR PRN #15 tablet 01/31/18 Unknown Rx 5/325] Ibuprofen [Motrin] 600 mg PO Q8H PRN #20 tablet 03/07/18 Unknown Rx Allergies Allergy/AdvReac Type Severity Reaction Status Date / Time No Known Allergies Allergy Verified 03/06/18 16:50 ED Review of Systems ROS: Stated complaint: ABDOMINAL PAIN Other details as noted in HPI Other: GENERAL: No weight change, fatigue, weakness, fever, chills, or night sweats SKIN: No changes in skin or hair, no itching, no rashes, no jaundice HEAD: No trauma, headache, or visual changes EYES: No blurriness, tearing, itching, acute visual loss, conjunctival discoloration, or scleral icterus EARS: No hearing loss, tinnitus, vertigo, or earache NOSE: No rhinorrhea, stuffiness, sneezing, itching, or epistaxis MOUTH: No bleeding gums, hoarseness, sore throat, or swelling CARDIAC: No new murmur, chest pain, palpitations, dyspnea on exertion, orthopnea , PND, or edema RESPIRATORY: No shortness of breath, wheeze, cough, sputum production, hemoptysis, pneumonia, asthma, bronchitis, or emphysema GI: Abdominal pain. No change in appetite, nausea, vomiting, dysphagia, change in bowel frequency, diarrhea, constipation, bleeding, hematemesis, melena , hematochezia URINARY: No frequency, urgency, polyuria, dysuria, hematuria, or incontinence MUSCULOSKELETAL: No muscle weakness, joint stiffness, decrease in range of motion, redness, swelling NEUROLOGIC: No loss of sensation, numbness, tingling, tremors, weakness, paralysis, seizures HEMATOLOGIC: No anemia, easy bruising, bleeding, petechiae, or purpura ENDOCRINE: No hot or cold intolerance, sweating, polyuria, polydipsia or, polyphagia no thyroid problems PSYCHIATRIC: No change in mood, no anxiety, no depression ED Past Medical Hx - Past Medical History Hx Hypertension: Yes Hx Arthritis: Yes Hx Psychiatric Treatment: Yes (PTSD) Additional medical history: ETOH ABUSE WITH BEER, pancreatitis - Surgical History Hx Appendectomy: Yes - Social History Smoking Status: Never Smoker Substance Use Type: Alcohol - Medications Home Medications: Home Medications Medication Instructions Recorded Confirmed Last Taken Type Phenazopyridine [Pyridium] 100 mg PO TID #6 tab 01/17/17 Unknown Rx Sulfamethoxazole/Trimethoprim 1 each PO BID #14 tablet 01/17/17 Unknown Rx [Bactrim DS TAB] metroNIDAZOLE [Flagyl] 500 mg PO ONCE #4 tab 01/17/17 Unknown Rx Folic Acid [Folvite] 1 mg PO QDAY #30 tablet 01/31/18 Unknown Rx Multivitamin Tab [Multiple Vitamin 1 each PO QDAY #30 tablet 01/31/18 Unknown Rx TAB (Theragran)] Ondansetron [Zofran Odt] 4 mg PO Q8HR #15 tab.rapdis 01/31/18 Unknown Rx Thiamine [Vitamin B-1] 100 mg PO QDAY #30 tablet 01/31/18 Unknown Rx oxyCODONE /ACETAMINOPHEN [Percocet 1 tab PO Q6HR PRN #15 tablet 01/31/18 Unknown Rx 5/325] Ibuprofen [Motrin] 600 mg PO Q8H PRN #20 tablet 03/07/18 Unknown Rx ED Physical Exam - General Limitations: No Limitations - Other Other exam information: GENERAL: Patient in no acute distress HEAD: Normocephalic, atraumatic EYES: PERRLA, EOM intact, no scleral icterus, visual cline and acuity wnl NOSE: No tenderness, discharge, sinus tenderness MOUTH: No erythema, bleeding, exudate HEART: Regular rate and rhythm, no murmur, S1-S2 are auscultated, pulses are symmetric LUNGS: bilateral breath sounds. No wheezing, rales, rhonchi ABDOMEN: Normal bowel sounds, no tenderness, no rebound, no guarding, no masses , no CVA tenderness MUSCULOSKELETAL: Normal joint range of motion, no redness, no swelling, no tenderness NEUROLOGIC: GCS 15, Alert and Oriented x3, Cranial nerves intact, normal sensation, normal strength, normal gait, no cerebellar deficit PSYCHIATRIC: No homicidal or suicidal ideation, no anxiety, no depression, no hallucinations SKIN: Skin is warm and dry, no wounds, no rashes ED Course Vital Signs 03/06/18 03/06/18 16:50 23:19 Temperature 98.6 F 97.8 F Pulse Rate 98 H 73 Respiratory 18 20 Rate Blood Pressure 136/106 Blood Pressure 173/96 [Right] O2 Sat by Pulse 100 99 Oximetry ED Medical Decision Making - Lab Data Result diagrams: 03/06/18 17:00 03/06/18 17:00 Laboratory Results - last 24 hr 03/06/18 03/06/18 03/06/18 17:00 17:00 17:00 WBC 5.0 RBC 4.56 Hgb 14.7 Hct 44.1 MCV 97 H MCH 32 MCHC 33 RDW 12.8 L Plt Count 175 Lymph % (Auto) 29.9 Hardy % (Auto) 15.2 H Eos % (Auto) 2.3 Baso % (Auto) 0.7 Lymph # 1.5 Hardy # 0.8 Eos # 0.1 Baso # 0.0 Seg Neutrophils % 51.9 Seg Neutrophils # 2.6 Sodium 137 Potassium 4.3 Chloride 96.9 L Carbon Dioxide 28 Anion Gap 16 BUN 12 Creatinine 0.7 L Estimated GFR > 60 BUN/Creatinine Ratio 17 Glucose 104 H Calcium 9.6 Total Bilirubin 0.70 AST 20 ALT 11 Alkaline Phosphatase 73 Total Protein 8.6 H Albumin 4.2 Albumin/Globulin Ratio 1.0 Lipase 144 H Plasma/Serum Alcohol < 0.01 - Medical Decision Making Patient comfortable. Updated with results. Recommend discharge with outpatient follow up. Denied request for narcotic rx. Recommend follow up with GI and/or pain mangement for continued narcotic rx treatment. Return if symptoms worsen. Critical care attestation.: If time is entered above; I have spent that time in minutes in the direct care of this critically ill patient, excluding procedure time. ED Disposition Clinical Impression: Pancreatitis Qualifiers: Chronicity: acute Pancreatitis type: unspecified pancreatitis type Acute pancreatitis complication: unspecified Qualified Code(s): K85.90 - Acute pancreatitis without necrosis or infection, unspecified Disposition: TO HOME OR SELFCARE Is pt being admited?: No Condition: Stable Instructions: Pancreatitis (ED) Prescriptions: Ibuprofen [Motrin] 600 mg PO Q8H PRN #20 tablet PRN Reason: Pain Referrals: PRIMARY CARE, [Primary Care Provider] - 3-5 Days [facility] [Outside] - 3-5 Days [facility] [Outside] - 3-5 Days [facility] [Outside] - 3-5 Days [facility] [Provider Group] - 3-5 Days Time of Disposition: 00:23
[2018-03-07 00:42] VITALS: BP 143/98
== END 2018-03-07 00:48 | disposition home or self-care (01) ==
LOC: ED 16:41
DX: K85.90 Acute pancreatitis without necrosis or infection, unspecified (principal); I10 Essential (primary) hypertension; M19.90 Unspecified osteoarthritis, unspecified site; F43.10 Post-traumatic stress disorder, unspecified; F10.10 Alcohol abuse, uncomplicated
CPT/HCPCS: 36415; 80053; 83690; 85025; 96374; 99283; G0480; J1885; 80320